=== PATIENT | male | born 1955 | race Caucasian/White ===

== ENCOUNTER 2016-05-13 04:58 | Emergency (ER) | payer OTHER ==
[~2016-05-13 04:58] MED LIST: ASPI1TAB24 PO; ATOR1TAB21 PO; AVAP75TA PO; METO25TAB PO; MULT1TAB10 PO; NITR4TASL SL; PLAV75TA38 PO; VITA500046 PO
[2016-05-13] MEDS ORDERED: ASPIRIN 81 MG CHEW TABLET As Ordered ONE (05:22)
[2016-05-13 05:34] LABS: MEAN CORPUSCULAR HEMOGLOBIN 31.5 pg (27.0-33.0); MEAN CORPUSCULAR HGB CONC 34.2 g/dl (32.0-36.5); MEAN CORPUSCULAR VOLUME 92.2 fl (80.0-96.0); RED CELL DISTRIBUTION WIDTH 12.2 % (11.5-14.5); WHITE BLOOD COUNT 7.8 K/mm3 (4.0-10.0)
[2016-05-13 05:36] LABS: INR 0.96
[2016-05-13 05:45] LABS: ANION GAP 8 MEQ/L (8-16); BLOOD UREA NITROGEN 22 MG/DL (7-18); CALCIUM LEVEL 8.6 MG/DL (8.8-10.2); CARBON DIOXIDE LEVEL 29 MEQ/L (21-32); CHLORIDE LEVEL 105 MEQ/L (98-107); CREATININE FOR GFR 0.98 MG/DL (0.70-1.30); GLOMERULAR FILTRATION RATE > 60.0 (>49); GLUCOSE, FASTING 110 MG/DL (80-110); POTASSIUM SERUM 3.6 MEQ/L (3.5-5.1); SODIUM LEVEL 142 MEQ/L (136-145)
[2016-05-13] MEDS ORDERED: SIMETHICONE 80 MG CHEW TAB PO ONE (05:45)
--- NOTE | 2016-05-13 06:23 | EDDOCDS ---
Nurse's Notes [facility] Name: Nick Stallings Age: 60 yrs Sex: Male : 1955 Arrival Date: 05/13/2016 Time: 04:58 Bed 17 Private MD: Diagnosis: Eructation Presentation: 05/13 05:02 Presenting complaint: Significant other states: states pt has been having episodes of cz anxiety for sometime. recently returned from [place].where anxiety issues continued pt retunred home less than 24hrs ago and chest discomfort anxiety have continued.currently pt has chest discomfort epigastric region feels like i want to burp. no radiation of pain. Aspirin was not taken prior to arrival. Adult Sepsis Screening: The patient does not have new or worsening altered mentation. Patient's respiratory rate is less than 22. Systolic blood pressure is greater than 100. Patient has a qSOFA score of 0- Negative Sepsis Screen. Suicide/Homicide risk assessment- the patient denies having any suicidal and/or homicidal ideations and does not present with any other emotional, behavioral or mental health complaints. Status: Patient is not a service department manager or dependent. Transition of care: patient was not received from another setting of care. 05:02 Acuity: ALPHONSO Level 2 cz 05:02 Method Of Arrival: Walkin/Carried/Asstd cz Triage Assessment: 05:13 General: Appears distressed, Behavior is anxious. Pain: Location: xyphoid area. HIV cz screening NA for this visit Offered previously. 06:21 Cardiovascular: Chest pain is described as vague, radiates Does not radiate. episodes ko2 are intermittent began over the last week. Historical: - Allergies: No known drug Allergies; - Home Meds: 1. atorvastatin 20 mg oral tab once daily 2. Avapro 75 mg Oral tab once daily 3. aspirin 81 mg Oral tab once daily 4. Plavix 75 mg Oral tab 5. metoprolol tartrate 25 mg Oral tab 1 tab 2 times per day 6. multivitamin Oral cap daily 7. nitroglycerin 0.4 mg SL subl 8. Vitamin D Oral 5000 unit daily - PMHx: NC; - PSHx: CABG; Coronary Stents; - Social history: Smoking status: Patient states was never smoker of tobacco. No barriers to communication noted, The patient speaks fluent Egyptian, Speaks appropriately for age. - Family history: Not pertinent. - : The pt / caregiver states he / she is on anticoagulants: Plavix. Home medication list is obtained from family members. - Exposure Risk Screening:: None identified. Screenin:06 Screening information is obtained from the patient. Fall risk: No risks identified. ko2 Assistance ADL's: requires no assistance with activities of daily living. Abuse/DV Screen: The patient / caregiver reports he/she is: not in a situation that causes fear, pain or injury. Nutritional screening: No deficits noted. Advance Directives: Currently, there is no health care proxy. There is no active DNR order. There is no living will. There is no Power of Intelligence Officer. home support is adequate. Assessment: 05:14 General: Appears distressed, Behavior is anxious, cooperative. Pain: Location: ko2 epigastric area. Neurological: Level of Consciousness is awake, alert. Cardiovascular: Heart tones S1 S2 present Rhythm is regular Chest pain is described as "not really a pain. It feels like I want to burp.". Respiratory: Airway is patent Respiratory effort is even, unlabored, Breath sounds are clear bilaterally. GI: Abdomen is non- distended Bowel sounds present X 4 quads. Derm: Skin is normal. Musculoskeletal: Range of motion intact in all extremities. 06:05 General: Appears in no apparent distress, Behavior is cooperative. Pain: Location: ko2 epigastric area. Neurological: Level of Consciousness is awake, alert. Cardiovascular: Rhythm is regular. Respiratory: Airway is patent Respiratory effort is even, unlabored. Derm: Skin is normal. Vital Signs: 05:13 BP 152 / 81; Pulse 68; Resp 16; Pulse Ox 98% on R/A; cz 05:19 Temp 98.7(TE); Weight 102.06 kg; Height 6 ft. 2 in. (187.96 cm); ko2 05:34 Pulse 66 MON; Pulse Ox 98% ; ko2 05:35 BP 146 / 74 (auto/); ko2 06:16 BP 138 / 75; Pulse 62; Resp 18; Temp 98.4(TE); Pulse Ox 97% on R/A; Pain 6/10; mally 05:19 Body Mass Index 28.89 (102.06 kg, 187.96 cm) ko2 Vitals: 05:13 Log In Time: May 13, 2016 at 05:10. cz ED Course: 04:59 Patient visited by Lou Santiago, Reg. hs2 04:59 Patient moved to Waiting hs2 05:00 Radha Galeano RN is Primary Nurse. cz 05:00 Patient moved to 17 cz 05:06 Patient visited by Susanna Smart PCA. mally 05:06 Pt greeted and oriented to ED. Patient advised of names of staff involved in care, mally location of call bennett, wait times and NPO status. Accompanied by Significant Other, Patient has correct armband on for positive identification. Placed in gown. Bed in low position. Call light in reach. Side rails up X 1. surveillance system monitor on. Pulse ox on. NIBP on. 05:06 EKG done. (by ED staff). Reviewed by Quirino Juan DO. mally 05:09 Triage Initiated cz 05:10 Quirino Juan DO is Attending Physician. cs11 05:10 Patient visited by Quirino Juan DO. cs11 05:13 Inserted saline lock: 20 gauge in left antecubital area and blood collected. The ko2 patient tolerated the procedure well. 05:22 Cardiac Marker Panel Sent. ko2 05:22 Pt & Aptt Sent. ko2 05:22 MED Profile Sent. ko2 05:22 CBC Sent. ko2 06:03 Patient visited by Radha Galeano RN. ko2 06:16 Patient visited by Susanna Smart PCA. mally 06:19 [facility] Payment Agreement was scanned into [employer] and attached to record. hs2 06:21 The patient / caregiver is instructed regarding the plan of care and ED course. ko2 06:21 Discontinued lock intact, bleeding controlled, pressure dressing applied, No ko2 redness/swelling at site. No procedures done that require assistance. Administered Medications: 05:28 Drug: Aspirin 324 mg [aspirin 81 mg chewable tablet (4 tabs)] Route: PO; ko2 05:46 Drug: Simethicone 360 mg Route: PO; ko2 Order Results: Lab Order: CBC; SPEC'M 05/13/16 05:11 Test: WHITE BLOOD COUNT; Value: 7.8; Range: 4.0-10.0; Units: K/mm3; Status: F Test: RED BLOOD COUNT; Value: 5.03; Range: 4.30-6.10; Units: M/mm3; Status: F Test: HEMOGLOBIN; Value: 15.9; Range: 14.0-18.0; Units: g/dl; Status: F Test: HEMATOCRIT; Value: 46.4; Range: 42.0-52.0; Units: %; Status: F Test: MEAN CORPUSCULAR VOLUME; Value: 92.2; Range: 80.0-96.0; Units: fl; Status: F Test: MEAN CORPUSCULAR HEMOGLOBIN; Value: 31.5; Range: 27.0-33.0; Units: pg; Status: F Test: MEAN CORPUSCULAR HGB CONC; Value: 34.2; Range: 32.0-36.5; Units: g/dl; Status: F Test: RED CELL DISTRIBUTION WIDTH; Value: 12.2; Range: 11.5-14.5; Units: %; Status: F Test: PLATELET COUNT, AUTOMATED; Value: 216; Range: 150-450; Units: k/mm3; Status: F Lab Order: MED Profile; [facility] 05/13/16 05:11 Test: GLUCOSE, FASTING; Value: 110; Range: 80-110; Units: MG/DL; Status: F Test: BLOOD UREA NITROGEN; Value: 22; Range: 7-18; Abnormal: Above high normal; Units: MG/DL; Status: F Test: CREATININE FOR GFR; Value: 0.98; Range: 0.70-1.30; Units: MG/DL; Status: F Test: GLOMERULAR FILTRATION RATE; Value: > 60.0; Range: >49; Status: F Test: SODIUM LEVEL; Value: 142; Range: 136-145; Units: MEQ/L; Status: F Test: POTASSIUM SERUM; Value: 3.6; Range: 3.5-5.1; Units: MEQ/L; Status: F Test: CHLORIDE LEVEL; Value: 105; Range: 98-107; Units: MEQ/L; Status: F Test: CARBON DIOXIDE LEVEL; Value: 29; Range: 21-32; Units: MEQ/L; Status: F Test: ANION GAP; Value: 8; Range: 8-16; Units: MEQ/L; Status: F Test: CALCIUM LEVEL; Value: 8.6; Range: 8.8-10.2; Abnormal: Below low normal; Units: MG/DL; Status: F Test Note: ; Units are mL/min/1.73 m2 Chronic Kidney Disease Staging per NKF: Stage I & II GFR >=60 Normal to Mildly Decreased Stage III GFR 30-59 Moderately Decreased Stage IV GFR 15-29 Severely Decreased Stage V GFR <15 Very Little GFR Left ESRD GFR <15 on BASKETBALL REFEREE Lab Order: Pt & Aptt; SPEC'M 05/13/16 05:11 Test: PROTHROMBIN TIME; Value: 12.9; Range: 12.3-14.5; Units: SECONDS; Status: F Test: INR; Value: 0.96; Status: F Test: PARTIAL THROMBOPLASTIN TIME; Value: 26.5; Range: 26.6-37.1; Abnormal: Below low normal; Units: SECONDS; Status: F Test Note: ; THERAPUTIC HUMAN INR VALUES INDICATIONS NORMAL RANGES PROPHYLAXIS/TREATMENT OF: VENOUS THROMBOSIS 2.0-3.0 PULMONARY EMBOLISM 2.0-3.0 PREVENTION OF SYSTEMIC EMBOLISM FROM: TISSUE HEART VALVES 2.0-3.0 ACUTE MYOCARDIAL INFARCTION 2.0-3.0 VALVULAR HEART DISEASE 2.0-3.0 ATRIAL FIBRILLATION 2.0-3.0 MECHANICAL VALVES(HIGH RISK) 2.5-3.5 RECURRENT MYOCARDIAL INFARCTION 2.5-3.5 Lab Order: Cardiac Marker Panel; SPEC'M 05/13/16 05:11 Test: CPK CREATINE PHOSPHOKINASE; Value: 279; Range: 39-308; Units: U/L; Status: F Test: CK-MB VALUE MASS; Value: 3.7; Range: 0.0-3.6; Abnormal: Above high normal; Units: NG/ML; Status: F Test: MB/CK RELATIVE INDEX; Value: 1.32; Range: < OR =4; Status: F Test: TROPONIN I; Value: < 0.02; Range: < 0.10; Units: NG/ML; Status: F Test Note: ; DIAGNOSIS CRITERIA MMB ng/ml Relative Index (RI) NON-AMI < or = 5 N/A GRANADOS ZONE > 5 < or = 4 AMI > 5 > 4 Outcome: 06:14 Discharge ordered by Provider. [facility] 06:21 Discharge Assessment: Patient awake, alert and oriented x 3. No cognitive and/or ko2 functional deficits noted. Patient verbalized understanding of disposition instructions. patient administered narcotics - no. The following High Risk Discharge criteria are identified: None. Discharged to home ambulatory, with significant other. Condition: stable. Discharge instructions given to patient, Instructed on discharge instructions, follow up and referral plans. Demonstrated understanding of instructions, Pt was receptive of discharge instructions/ teaching. No special radiology studies were completed. Property sent home with patient. 06:22 Patient left the ED. ko2 Signatures: Jaiden Giron, RN RN Susanna Rivero, CONNIE LOADING DOCK HAND Quirino Solares, DO cs11 Rdaha Galeano RN RN ko2 Lou Santiago, Reg Reg hs2 MTDD
--- NOTE | 2016-05-13 06:23 | EDDOCDS ---
Physician Documentation [facility] Name: Nick Stallings Age: 60 yrs Sex: Male : 1955 Arrival Date: 05/13/2016 Time: 04:58 Bed 17 Private MD: Disposition: 05/13/16 06:14 Discharged to Home/Self Care. Impression: Eructation. - Condition is Stable. - Medication Reconciliation, Local Pharmacy Hours form. - Follow up: Private Physician; When: Call to arrange an appointment; Reason: Recheck today's complaints. - Problem is new. - Symptoms have improved. - Notes: GasX OTC if needed. Historical: - Allergies: No known drug Allergies; - Home Meds: 1. atorvastatin 20 mg oral tab once daily 2. Avapro 75 mg Oral tab once daily 3. aspirin 81 mg Oral tab once daily 4. Plavix 75 mg Oral tab 5. metoprolol tartrate 25 mg Oral tab 1 tab 2 times per day 6. multivitamin Oral cap daily 7. nitroglycerin 0.4 mg SL subl 8. Vitamin D Oral 5000 unit daily - PMHx: [place]; - PSHx: CABG; Coronary Stents; - Social history: Smoking status: Patient states was never smoker of tobacco. No barriers to communication noted, The patient speaks fluent Haitian, Speaks appropriately for age. - Family history: Not pertinent. - : The pt / caregiver states he / she is on anticoagulants: Plavix. Home medication list is obtained from family members. - Exposure Risk Screening:: None identified. Vital Signs: 05/13 05:13 BP 152 / 81; Pulse 68; Resp 16; Pulse Ox 98% on R/A; cz 05:19 Temp 98.7(TE); Weight 102.06 kg / 225 lbs; Height 6 ft. 2 in. (187.96 cm); ko2 05:34 Pulse 66 MON; Pulse Ox 98% ; ko2 05:35 BP 146 / 74 (auto/); ko2 06:16 BP 138 / 75; Pulse 62; Resp 18; Temp 98.4(TE); Pulse Ox 97% on R/A; Pain 6/10; mally 05:19 Body Mass Index 28.89 (102.06 kg, 187.96 cm) ko2 MDM: 05:02 ECG WITH READING ER PHYS+CARDIAG ordered. EDMS 05:20 Aspirin 324 mg PO once ordered. cs11 05:20 Simethicone 360 mg PO once ordered. cs11 05:21 CBC Ordered. EDMS 05:21 MED Profile Ordered. EDMS 05:21 Pt & Aptt Ordered. EDMS 05:21 Cardiac Marker Panel Ordered. EDMS 06:01 MED Profile Reviewed. cs11 06:01 Pt & Aptt Reviewed. cs11 06:01 Cardiac Marker Panel Reviewed. cs11 06:01 CBC Reviewed. cs11 06:18 Financial registration complete. hs2 06:19 [facility] Payment Agreement was scanned into [employer] and attached to record. hs2 Administered Medications: 05:28 Drug: Aspirin 324 mg [aspirin 81 mg chewable tablet (4 tabs)] Route: PO; ko2 05:46 Drug: Simethicone 360 mg Route: PO; ko2 Signatures: Dispatcher [employer] EDMS Jaiden Giron RN RN cz Quirino Juan, DO cs11 Radha Galeano RN RN ko2 Lou Santiago, Reg Reg hs2 The chart was reviewed and I authenticate all verbal orders and agree with the evaluation and treatment provided.Attachments: 06:19 [facility] Payment Agreement hs2 MTDD
--- NOTE | 2016-05-14 10:11 | ECGEPIP ---
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
--- NOTE | 2016-05-15 07:23 | EDDOCDS ---
Nurse's Notes [facility] Name: Nick Torres Age: 60 yrs Sex: Male : 1955 Arrival Date: 05/13/2016 Time: 04:58 Bed 17 Private MD: Diagnosis: Eructation Presentation: 05/13 05:02 Presenting complaint: Significant other states: states pt has been having episodes of cz anxiety for sometime. recently returned from [place].where anxiety issues continued pt retunred home less than 24hrs ago and chest discomfort anxiety have continued.currently pt has chest discomfort epigastric region feels like i want to burp. no radiation of pain. Aspirin was not taken prior to arrival. Adult Sepsis Screening: The patient does not have new or worsening altered mentation. Patient's respiratory rate is less than 22. Systolic blood pressure is greater than 100. Patient has a qSOFA score of 0- Negative Sepsis Screen. Suicide/Homicide risk assessment- the patient denies having any suicidal and/or homicidal ideations and does not present with any other emotional, behavioral or mental health complaints. Status: Patient is not a guest service supervisor or dependent. Transition of care: patient was not received from another setting of care. 05:02 Acuity: ALPHONSO Level 2 cz 05:02 Method Of Arrival: Walkin/Carried/Asstd cz Triage Assessment: 05:13 General: Appears distressed, Behavior is anxious. Pain: Location: xyphoid area. HIV cz screening NA for this visit Offered previously. 06:21 Cardiovascular: Chest pain is described as vague, radiates Does not radiate. episodes ko2 are intermittent began over the last week. Historical: - Allergies: No known drug Allergies; - Home Meds: 1. atorvastatin 20 mg oral tab once daily 2. Avapro 75 mg Oral tab once daily 3. aspirin 81 mg Oral tab once daily 4. Plavix 75 mg Oral tab 5. metoprolol tartrate 25 mg Oral tab 1 tab 2 times per day 6. multivitamin Oral cap daily 7. nitroglycerin 0.4 mg SL subl 8. Vitamin D Oral 5000 unit daily - PMHx: PR; - PSHx: CABG; Coronary Stents; - Social history: Smoking status: Patient states was never smoker of tobacco. No barriers to communication noted, The patient speaks fluent Nigerien, Speaks appropriately for age. - Family history: Not pertinent. - : The pt / caregiver states he / she is on anticoagulants: Plavix. Home medication list is obtained from family members. - Exposure Risk Screening:: None identified. Screenin:06 Screening information is obtained from the patient. Fall risk: No risks identified. ko2 Assistance ADL's: requires no assistance with activities of daily living. Abuse/DV Screen: The patient / caregiver reports he/she is: not in a situation that causes fear, pain or injury. Nutritional screening: No deficits noted. Advance Directives: Currently, there is no health care proxy. There is no active DNR order. There is no living will. There is no Power of Scalp Treatment Operator. home support is adequate. Assessment: 05:14 General: Appears distressed, Behavior is anxious, cooperative. Pain: Location: ko2 epigastric area. Neurological: Level of Consciousness is awake, alert. Cardiovascular: Heart tones S1 S2 present Rhythm is regular Chest pain is described as "not really a pain. It feels like I want to burp.". Respiratory: Airway is patent Respiratory effort is even, unlabored, Breath sounds are clear bilaterally. GI: Abdomen is non- distended Bowel sounds present X 4 quads. Derm: Skin is normal. Musculoskeletal: Range of motion intact in all extremities. 06:05 General: Appears in no apparent distress, Behavior is cooperative. Pain: Location: ko2 epigastric area. Neurological: Level of Consciousness is awake, alert. Cardiovascular: Rhythm is regular. Respiratory: Airway is patent Respiratory effort is even, unlabored. Derm: Skin is normal. Vital Signs: 05:13 BP 152 / 81; Pulse 68; Resp 16; Pulse Ox 98% on R/A; cz 05:19 Temp 98.7(TE); Weight 102.06 kg; Height 6 ft. 2 in. (187.96 cm); ko2 05:34 Pulse 66 MON; Pulse Ox 98% ; ko2 05:35 BP 146 / 74 (auto/); ko2 06:16 BP 138 / 75; Pulse 62; Resp 18; Temp 98.4(TE); Pulse Ox 97% on R/A; Pain 6/10; mally 05:19 Body Mass Index 28.89 (102.06 kg, 187.96 cm) ko2 Vitals: 05:13 Log In Time: May 13, 2016 at 05:10. cz ED Course: 04:59 Patient visited by Lou Santiago, Reg. hs2 04:59 Patient moved to Waiting hs2 05:00 Radha Galeano RN is Primary Nurse. cz 05:00 Patient moved to 17 cz 05:06 Patient visited by Susanna Smart PCA. mally 05:06 Pt greeted and oriented to ED. Patient advised of names of staff involved in care, mally location of call bennett, wait times and NPO status. Accompanied by Significant Other, Patient has correct armband on for positive identification. Placed in gown. Bed in low position. Call light in reach. Side rails up X 1. director meetings on. Pulse ox on. NIBP on. 05:06 EKG done. (by ED staff). Reviewed by Quirino Cooper DO. mally 05:09 Triage Initiated cz 05:10 Quirino Cooper DO is Attending Physician. cs11 05:10 Patient visited by Quirino Cooper DO. cs11 05:13 Inserted saline lock: 20 gauge in left antecubital area and blood collected. The ko2 patient tolerated the procedure well. 05:22 Cardiac Marker Panel Sent. ko2 05:22 Pt & Aptt Sent. ko2 05:22 MED Profile Sent. ko2 05:22 CBC Sent. ko2 06:03 Patient visited by Radha Galeano RN. ko2 06:16 Patient visited by Susanna Smart PCA. mally 06:19 [facility] Payment Agreement was scanned into [facility] and attached to record. hs2 06:21 The patient / caregiver is instructed regarding the plan of care and ED course. ko2 06:21 Discontinued lock intact, bleeding controlled, pressure dressing applied, No ko2 redness/swelling at site. No procedures done that require assistance. 05/14 10:45 EKG-ADULT Returned. EDMS Administered Medications: 05/13 05:28 Drug: Aspirin 324 mg [aspirin 81 mg chewable tablet (4 tabs)] Route: PO; ko2 05:46 Drug: Simethicone 360 mg Route: PO; ko2 Order Results: Lab Order: CBC; SPEC'M 05/13/16 05:11 Test: WHITE BLOOD COUNT; Value: 7.8; Range: 4.0-10.0; Units: K/mm3; Status: F Test: RED BLOOD COUNT; Value: 5.03; Range: 4.30-6.10; Units: M/mm3; Status: F Test: HEMOGLOBIN; Value: 15.9; Range: 14.0-18.0; Units: g/dl; Status: F Test: HEMATOCRIT; Value: 46.4; Range: 42.0-52.0; Units: %; Status: F Test: MEAN CORPUSCULAR VOLUME; Value: 92.2; Range: 80.0-96.0; Units: fl; Status: F Test: MEAN CORPUSCULAR HEMOGLOBIN; Value: 31.5; Range: 27.0-33.0; Units: pg; Status: F Test: MEAN CORPUSCULAR HGB CONC; Value: 34.2; Range: 32.0-36.5; Units: g/dl; Status: F Test: RED CELL DISTRIBUTION WIDTH; Value: 12.2; Range: 11.5-14.5; Units: %; Status: F Test: PLATELET COUNT, AUTOMATED; Value: 216; Range: 150-450; Units: k/mm3; Status: F Lab Order: MED Profile; [facility] 05/13/16 05:11 Test: GLUCOSE, FASTING; Value: 110; Range: 80-110; Units: MG/DL; Status: F Test: BLOOD UREA NITROGEN; Value: 22; Range: 7-18; Abnormal: Above high normal; Units: MG/DL; Status: F Test: CREATININE FOR GFR; Value: 0.98; Range: 0.70-1.30; Units: MG/DL; Status: F Test: GLOMERULAR FILTRATION RATE; Value: > 60.0; Range: >49; Status: F Test: SODIUM LEVEL; Value: 142; Range: 136-145; Units: MEQ/L; Status: F Test: POTASSIUM SERUM; Value: 3.6; Range: 3.5-5.1; Units: MEQ/L; Status: F Test: CHLORIDE LEVEL; Value: 105; Range: 98-107; Units: MEQ/L; Status: F Test: CARBON DIOXIDE LEVEL; Value: 29; Range: 21-32; Units: MEQ/L; Status: F Test: ANION GAP; Value: 8; Range: 8-16; Units: MEQ/L; Status: F Test: CALCIUM LEVEL; Value: 8.6; Range: 8.8-10.2; Abnormal: Below low normal; Units: MG/DL; Status: F Test Note: ; Units are mL/min/1.73 m2 Chronic Kidney Disease Staging per NKF: Stage I & II GFR >=60 Normal to Mildly Decreased Stage III GFR 30-59 Moderately Decreased Stage IV GFR 15-29 Severely Decreased Stage V GFR <15 Very Little GFR Left ESRD GFR <15 on MANAGER DISH Lab Order: Pt & Aptt; [facility]05/13/16 05:11 Test: PROTHROMBIN TIME; Value: 12.9; Range: 12.3-14.5; Units: SECONDS; Status: F Test: INR; Value: 0.96; Status: F Test: PARTIAL THROMBOPLASTIN TIME; Value: 26.5; Range: 26.6-37.1; Abnormal: Below low normal; Units: SECONDS; Status: F Test Note: ; THERAPUTIC HUMAN INR VALUES INDICATIONS NORMAL RANGES PROPHYLAXIS/TREATMENT OF: VENOUS THROMBOSIS 2.0-3.0 PULMONARY EMBOLISM 2.0-3.0 PREVENTION OF SYSTEMIC EMBOLISM FROM: TISSUE HEART VALVES 2.0-3.0 ACUTE MYOCARDIAL INFARCTION 2.0-3.0 VALVULAR HEART DISEASE 2.0-3.0 ATRIAL FIBRILLATION 2.0-3.0 MECHANICAL VALVES(HIGH RISK) 2.5-3.5 RECURRENT MYOCARDIAL INFARCTION 2.5-3.5 Lab Order: Cardiac Marker Panel; [facility] 05/13/16 05:11 Test: CPK CREATINE PHOSPHOKINASE; Value: 279; Range: 39-308; Units: U/L; Status: F Test: CK-MB VALUE MASS; Value: 3.7; Range: 0.0-3.6; Abnormal: Above high normal; Units: NG/ML; Status: F Test: MB/CK RELATIVE INDEX; Value: 1.32; Range: < OR =4; Status: F Test: TROPONIN I; Value: < 0.02; Range: < 0.10; Units: NG/ML; Status: F Test Note: ; DIAGNOSIS CRITERIA MMB ng/ml Relative Index (RI) NON-AMI < or = 5 N/A GRANADOS ZONE > 5 < or = 4 AMI > 5 > 4 Radiology Order: EKG-ADULT Test: EKG-ADULT REASON FOR EXAMINATION: Chest Pain; Stationary ECG Study; [facility] ED; ; Test Date: 2016-05-13; Pat Name: NICK TORRES Department:; Room: -; Gender: M Contract 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 cs11 06:21 Discharge Assessment: Patient awake, alert and oriented x 3. No cognitive and/or ko2 functional deficits noted. Patient verbalized understanding of disposition instructions. patient administered narcotics - no. The following High Risk Discharge criteria are identified: None. Discharged to home ambulatory, with significant other. Condition: stable. Discharge instructions given to patient, Instructed on discharge instructions, follow up and referral plans. Demonstrated understanding of instructions, Pt was receptive of discharge instructions/ teaching. No special radiology studies were completed. Property sent home with patient. 06:22 Patient left the ED. ko2 Signatures: Dispatcher [employer] EDMS Jaiden Giron, Susanna Smith RN, Quirino Briones, DO cs11 Radha Galeano RN RN ko2 Lou Santiago, Reg Reg hs2 Chart Complete MTDD
--- NOTE | 2016-05-15 07:23 | EDDOCDS ---
Physician Documentation [facility] Name: iNck Stallings Age: 60 yrs Sex: Male : 1955 Arrival Date: 05/13/2016 Time: 04:58 Bed 17 Private MD: Disposition: 05/13/16 06:14 Discharged to Home/Self Care. Impression: Eructation. - Condition is Stable. - Medication Reconciliation, Local Pharmacy Hours form. - Follow up: Private Physician; When: Call to arrange an appointment; Reason: Recheck today's complaints. - Problem is new. - Symptoms have improved. - Notes: GasX OTC if needed. Historical: - Allergies: No known drug Allergies; - Home Meds: 1. atorvastatin 20 mg oral tab once daily 2. Avapro 75 mg Oral tab once daily 3. aspirin 81 mg Oral tab once daily 4. Plavix 75 mg Oral tab 5. metoprolol tartrate 25 mg Oral tab 1 tab 2 times per day 6. multivitamin Oral cap daily 7. nitroglycerin 0.4 mg SL subl 8. Vitamin D Oral 5000 unit daily - PMHx: [place]; - PSHx: CABG; Coronary Stents; - Social history: Smoking status: Patient states was never smoker of tobacco. No barriers to communication noted, The patient speaks fluent [place], Speaks appropriately for age. - Family history: Not pertinent. - : The pt / caregiver states he / she is on anticoagulants: Plavix. Home medication list is obtained from family members. - Exposure Risk Screening:: None identified. Vital Signs: 05/13 05:13 BP 152 / 81; Pulse 68; Resp 16; Pulse Ox 98% on R/A; cz 05:19 Temp 98.7(TE); Weight 102.06 kg / 225 lbs; Height 6 ft. 2 in. (187.96 cm); ko2 05:34 Pulse 66 MON; Pulse Ox 98% ; ko2 05:35 BP 146 / 74 (auto/); ko2 06:16 BP 138 / 75; Pulse 62; Resp 18; Temp 98.4(TE); Pulse Ox 97% on R/A; Pain 6/10; mally 05:19 Body Mass Index 28.89 (102.06 kg, 187.96 cm) ko2 MDM: 05:02 ECG WITH READING ER PHYS+CARDIAG ordered. EDMS 05:20 Aspirin 324 mg PO once ordered. cs11 05:20 Simethicone 360 mg PO once ordered. cs11 05:21 CBC Ordered. EDMS 05:21 MED Profile Ordered. EDMS 05:21 Pt & Aptt Ordered. EDMS 05:21 Cardiac Marker Panel Ordered. EDMS 06:01 MED Profile Reviewed. cs11 06:01 Pt & Aptt Reviewed. cs11 06:01 Cardiac Marker Panel Reviewed. cs11 06:01 CBC Reviewed. cs11 06:18 Financial registration complete. hs2 06:19 [facility] Payment Agreement was scanned into [employer] and attached to record. hs2 Administered Medications: 05:28 Drug: Aspirin 324 mg [aspirin 81 mg chewable tablet (4 tabs)] Route: PO; ko2 05:46 Drug: Simethicone 360 mg Route: PO; ko2 Signatures: Dispatcher [employer] EDMS Jaiden Giron RN RN cz Quirino Juan, DO cs11 Radha Galeano RN RN ko2 Lou Santiago, Reg Reg hs2 The chart was reviewed and I authenticate all verbal orders and agree with the evaluation and treatment provided.Attachments: 06:19 [facility] Payment Agreement hs2 Chart Complete MTDD
--- NOTE | 2016-05-15 07:23 | EDDOCDS ---
Physician Documentation [facility] Name: Nick Stallings Age: 60 yrs Sex: Male : 1955 Arrival Date: 05/13/2016 Time: 04:58 Bed 17 Private MD: Disposition: 05/13/16 06:14 Discharged to Home/Self Care. Impression: Eructation. - Condition is Stable. - Medication Reconciliation, Local Pharmacy Hours form. - Follow up: Private Physician; When: Call to arrange an appointment; Reason: Recheck today's complaints. - Problem is new. - Symptoms have improved. - Notes: GasX OTC if needed. Historical: - Allergies: No known drug Allergies; - Home Meds: 1. atorvastatin 20 mg oral tab once daily 2. Avapro 75 mg Oral tab once daily 3. aspirin 81 mg Oral tab once daily 4. Plavix 75 mg Oral tab 5. metoprolol tartrate 25 mg Oral tab 1 tab 2 times per day 6. multivitamin Oral cap daily 7. nitroglycerin 0.4 mg SL subl 8. Vitamin D Oral 5000 unit daily - PMHx: [place]; - PSHx: CABG; Coronary Stents; - Social history: Smoking status: Patient states was never smoker of tobacco. No barriers to communication noted, The patient speaks fluent [place], Speaks appropriately for age. - Family history: Not pertinent. - : The pt / caregiver states he / she is on anticoagulants: Plavix. Home medication list is obtained from family members. - Exposure Risk Screening:: None identified. Vital Signs: 05/13 05:13 BP 152 / 81; Pulse 68; Resp 16; Pulse Ox 98% on R/A; cz 05:19 Temp 98.7(TE); Weight 102.06 kg / 225 lbs; Height 6 ft. 2 in. (187.96 cm); ko2 05:34 Pulse 66 MON; Pulse Ox 98% ; ko2 05:35 BP 146 / 74 (auto/); ko2 06:16 BP 138 / 75; Pulse 62; Resp 18; Temp 98.4(TE); Pulse Ox 97% on R/A; Pain 6/10; mally 05:19 Body Mass Index 28.89 (102.06 kg, 187.96 cm) ko2 MDM: 05:02 ECG WITH READING ER PHYS+CARDIAG ordered. EDMS 05:20 Aspirin 324 mg PO once ordered. cs11 05:20 Simethicone 360 mg PO once ordered. cs11 05:21 CBC Ordered. EDMS 05:21 MED Profile Ordered. EDMS 05:21 Pt & Aptt Ordered. EDMS 05:21 Cardiac Marker Panel Ordered. EDMS 06:01 MED Profile Reviewed. cs11 06:01 Pt & Aptt Reviewed. cs11 06:01 Cardiac Marker Panel Reviewed. cs11 06:01 CBC Reviewed. cs11 06:18 Financial registration complete. hs2 06:19 [facility] Payment Agreement was scanned into [email or web address] and attached to record. hs2 Administered Medications: 05:28 Drug: Aspirin 324 mg [aspirin 81 mg chewable tablet (4 tabs)] Route: PO; ko2 05:46 Drug: Simethicone 360 mg Route: PO; ko2 Signatures: Dispatcher [employer] EDMS Jaiden Giron RN RN cz Quirino Juan, DO cs11 Radha Galeano RN RN ko2 Lou Santiago, Reg Reg hs2 The chart was reviewed and I authenticate all verbal orders and agree with the evaluation and treatment provided.Attachments: 06:19 [facility] Payment Agreement hs2 Chart Complete MTDD
== END 2016-05-13 06:22 | disposition home or self-care (01) ==
LOC: M ED 04:58
DX: R14.2 Eructation (principal); I25.10 Atherosclerotic heart disease of native coronary artery without angina pectoris; Z95.1 Presence of aortocoronary bypass graft; Z79.82 Long term (current) use of aspirin; Z79.02 Long term (current) use of antithrombotics/antiplatelets; Z79.899 Other long term (current) drug therapy; I25.2 Old myocardial infarction

== ENCOUNTER 2016-05-17 02:35 | Emergency (ER) | payer OTHER ==
[~2016-05-17] VITALS: Ht 188 cm; Wt 102.1 kg
[2016-05-17] MEDS ORDERED: LORazepam 2 MG/ML VIAL (J2060) IV STA (03:39)
[2016-05-17] MEDS ORDERED: ASPIRIN 325 MG TAB PO ONE (03:45)
[2016-05-17 03:47] LABS: MEAN CORPUSCULAR HEMOGLOBIN 31.7 pg (27.0-33.0); MEAN CORPUSCULAR HGB CONC 34.9 g/dl (32.0-36.5); MEAN CORPUSCULAR VOLUME 90.9 fl (80.0-96.0); RED CELL DISTRIBUTION WIDTH 12.2 % (11.5-14.5); WHITE BLOOD COUNT 9.3 K/mm3 (4.0-10.0)
[2016-05-17 03:48] LABS: INR 1.01
[2016-05-17 03:56] LABS: AMYLASE 61 U/L (25-115); ANION GAP 9 MEQ/L (8-16); BLOOD UREA NITROGEN 17 MG/DL (7-18); CALCIUM LEVEL 9.3 MG/DL (8.8-10.2); CARBON DIOXIDE LEVEL 28 MEQ/L (21-32); CHLORIDE LEVEL 102 MEQ/L (98-107); CREATININE FOR GFR 0.95 MG/DL (0.70-1.30); GLOMERULAR FILTRATION RATE > 60.0 (>49); GLUCOSE, FASTING 108 MG/DL (80-110); POTASSIUM SERUM 3.5 MEQ/L (3.5-5.1); SODIUM LEVEL 139 MEQ/L (136-145)
[2016-05-17] MEDS ORDERED: ISOVUE-370 76% 100ML VIAL (Q9967) As Ordered ONE (04:17)
--- NOTE | 2016-05-17 05:00 | REPUSA ---
CLINICAL HISTORY: Pain, exclude PE. TECHNIQUE: Multiple incremental axial, coronal and oblique images are obtained from the thoracic inle t to the upper abdomen. Intravenous contrast material was administered as per pulmonary embolism prot ocol. COMMENTS: There is excellent opacification of pulmonary arterial system without evidence for pulmonary embolism . Aorta is of normal caliber without evidence for dissection or aneurysm. There is no evidence of pleural or parenchymal mass. Bilateral basilar atelectatic pulmonary changes. There are no pleural effusions. There is no evidence of hilar or mediastinal lymphadenopathy. The he art and great vessels are within normal limits. Images of the upper abdomen demonstrate no evidence of adrenal mass. The bony structures are free of lytic or blastic lesions. Multilevel degenerative changes are seen in volving the visualized thoracolumbar spine. Scattered calcifications are seen involving the aorta and major branches compatible with atherosclero sis. IMPRESSION: No evidence for pulmonary embolism. Basilar atelectatic pulmonary changes. Thank you for your kind referral of this patient.
--- NOTE | 2016-05-17 05:10 | REPUSA ---
CLINICAL HISTORY: Abdominal pain. TECHNIQUE: Multiple axial, sagittal and coronal CT images were obtained through the abdomen and pelvi s after administration of intravenous contrast material. COMMENTS: The liver is of uniform attenuation without mass or defect. There is no intra or extrahepatic biliary ductal dilatation. The spleen is normal. The gallbladder is within normal limits. The pancreas is of normal contour and attenuation characteristics. There is no evidence of adrenal mass. Bilateral peripelvic renal cysts. Both kidneys demonstrate prompt and equal nephrograms. The kidneys are normal in size, shape and conf iguration. There is no evidence of renal or ureteral mass. No renal or ureteral calculi are identifie d. There is no hydroureter or hydronephrosis. No evidence for appendicitis. There is no bowel wall thickening. No evidence for small or large luisito l obstruction. There is no evidence of abdominal ascites or lymphadenopathy. There is no evidence of intrinsic or extrinsic bladder mass. There is no pelvic ascites or lymphadeno nigel. Uncomplicated clonic diverticulosis. Mild fecal stasis. Small sliding hiatal hernia. Mild pros tatomegaly. Images of the lung bases show no evidence of pleural or parenchymal mass. There are no pleural effusi ons. The bony structures are free of lytic or blastic lesions. Multilevel degenerative changes are seen in volving the thoracolumbar spine. Scattered calcifications are seen involving the aorta and major bran ches compatible with atherosclerosis. IMPRESSION: Uncomplicated clonic diverticulosis. Bilateral peripelvic renal cysts. Prostatomegaly. No evidence of acute abdominal or pelvic pathology. Thank you for your kind referral of this patient.
[2016-05-17 07:26] VITALS: BP 150/91
[2016-05-17] MEDS ORDERED: ATIV1TAB10 PO (07:30)
--- NOTE | 2016-05-18 20:03 | ECGEPIP ---
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
== END 2016-05-17 07:49 | disposition home or self-care (01) ==
LOC: M ED 03:54
DX: F41.1 Generalized anxiety disorder (principal); I25.10 Atherosclerotic heart disease of native coronary artery without angina pectoris; I10 Essential (primary) hypertension; Z95.1 Presence of aortocoronary bypass graft; Z79.82 Long term (current) use of aspirin; Z79.899 Other long term (current) drug therapy; Z79.02 Long term (current) use of antithrombotics/antiplatelets
CPT/HCPCS: 36415; 71275; 74160; 80048; 82150; 82550; 82553; 83690; 85027; 85610; 85730; 93005; 96374; 99284; J2060; Q9967

== ENCOUNTER → 2016-05-28 | Outpatient (REF) | payer OTHER ==
[~2016-05-28] MED LIST changes: +ATIV1TAB10 PO
[2016-05-28 13:32] LABS: ALBUMIN 3.8 GM/DL (3.2-5.2); ALBUMIN/GLOBULIN RATIO 1.19 (1.00-1.93); BILIRUBIN,DIRECT 0.3 MG/DL (0.0-0.2); BILIRUBIN,TOTAL 1.2 MG/DL (0.2-1.0)
== END ==
LOC: M LABDRWAD 13:03
PROVIDERS: ATTEND Family Medicine
DX: N40.0 Benign prostatic hyperplasia without lower urinary tract symptoms (principal); R53.81 Other malaise

== ENCOUNTER → 2016-09-10 | Outpatient (REF) | payer OTHER ==
[~2016-09-10] MED LIST changes: +ASPI-161 PO; -ASPI1TAB24 PO; -AVAP75TA PO; +AVAP75TA7 PO; +METO25TA4 PO; -METO25TAB PO; +PLAV1TAB2 PO; -PLAV75TA38 PO
== END ==
LOC: M LABDRWAD 12:10
PROVIDERS: ATTEND Nurse Practitioner Adult Health
DX: E78.2 Mixed hyperlipidemia (principal); I25.10 Atherosclerotic heart disease of native coronary artery without angina pectoris

== ENCOUNTER → 2017-07-09 | Outpatient (REF) | payer OTHER ==
[2017-07-09 12:35] LABS: BASO # 0.1 10^3/uL (0.0-0.2); BASO % 0.8 % (0.0-1.0); EOS # 0.4 10^3/uL (0.0-0.50); EOS % 4.6 % (0.0-3.0); HEMATOCRIT 48.3 % (42.0-52.0); HEMOGLOBIN 16.2 g/dl (13.5-17.5); IMMATURE GRANULOCYTE % 1.1 % (0-3.0); LYMPH # 1.8 10^3/uL (1.5-4.5); LYMPH % 23.7 % (24.0-44.0); MEAN CORPUSCULAR HEMOGLOBIN 30.7 pg (27.0-33.0); MEAN CORPUSCULAR HGB CONC 33.5 g/dl (32.0-36.5); MEAN CORPUSCULAR VOLUME 91.5 fl (80.0-96.0); MONO # 0.7 10^3/uL (0.0-0.8); MONO % 9.8 % (0.0-5.0); NEUTROPHILS # 4.5 10^3/uL (1.8-7.7); PLATELET COUNT, AUTOMATED 238 10^3/uL (150-450); RED BLOOD COUNT 5.28 10^6/uL (4.30-6.10); RED CELL DISTRIBUTION WIDTH 12.5 % (11.5-14.5); WHITE BLOOD COUNT 7.6 10^3/uL (4.0-10.0)
[2017-07-09 13:31] LABS: ALBUMIN 3.8 GM/DL (3.2-5.2); ALKALINE PHOSPHATASE 107 U/L (45-117); ALT/SGPT 73 U/L (12-78); ANION GAP 7 MEQ/L (8-16); AST/SGOT 47 U/L (7-37); BILIRUBIN,TOTAL 1.4 MG/DL (0.2-1.0); BLOOD UREA NITROGEN 27 MG/DL (7-18); CALCIUM LEVEL 8.8 MG/DL (8.8-10.2); CARBON DIOXIDE LEVEL 28 MEQ/L (21-32); CHLORIDE LEVEL 106 MEQ/L (98-107); CHOLESTEROL LEVEL 138 MG/DL (<200); CHOLESTEROL RISK RATIO 2.603 (<5); CREATININE FOR GFR 0.93 MG/DL (0.70-1.30); GLOMERULAR FILTRATION RATE > 60.0 (>49); GLUCOSE, FASTING 91 MG/DL (70-100); HDL CHOLESTEROL 53 MG/DL (>40); NON-HDL-C 85 MG/DL; POTASSIUM SERUM 4.2 MEQ/L (3.5-5.1); PROSTATIC SPECIFIC AG MONITOR 2.66 NG/ML (< 4.0); SODIUM LEVEL 141 MEQ/L (136-145); TOTAL PROTEIN 7.6 GM/DL (6.4-8.2); TRIGLYCERIDES LEVEL 100 MG/DL (<150)
== END ==
LOC: M LABDRWAD 12:19
DX: N40.0 Benign prostatic hyperplasia without lower urinary tract symptoms (principal); I10 Essential (primary) hypertension

== ENCOUNTER → 2017-07-09 | Outpatient (REF) | payer OTHER ==
[2017-07-09 13:08] LABS: ALT/SGPT 74 U/L (12-78); AST/SGOT 49 U/L (7-37); CHOLESTEROL LEVEL 137 MG/DL (<200); CPK CREATINE PHOSPHOKINASE 618 U/L (39-308); HDL CHOLESTEROL 55 MG/DL (>40); LDL CHOLESTEROL 60.8 MG/DL (<100); NON-HDL-C 82 MG/DL; TRIGLYCERIDES LEVEL 106 MG/DL (<150)
== END ==
LOC: M LABDRWAD 12:17
DX: E78.2 Mixed hyperlipidemia (principal)

== ENCOUNTER → 2017-07-31 | Outpatient (CLI) | payer OTHER ==
[2017-07-31 09:31] LABS: ALT/SGPT 71 U/L (12-78)
[2017-07-31 09:31] LABS: AST/SGOT 47 U/L (7-37)
[2017-07-31 09:33] LABS: ALBUMIN 3.8 GM/DL (3.2-5.2); ALBUMIN/GLOBULIN RATIO 1.06 (1.00-1.93); ALKALINE PHOSPHATASE 102 U/L (45-117); ALT/SGPT 72 U/L (12-78); AST/SGOT 46 U/L (7-37); BILIRUBIN,DIRECT 0.3 MG/DL (0.0-0.2); BILIRUBIN,TOTAL 1.3 MG/DL (0.2-1.0); CHOLESTEROL LEVEL 146 MG/DL (<200); CHOLESTEROL RISK RATIO 2.393 (<5); CPK CREATINE PHOSPHOKINASE 724 U/L (39-308); HDL CHOLESTEROL 61 MG/DL (>40); LDL CHOLESTEROL 69.6 MG/DL (<100); NON-HDL-C 85 MG/DL; TOTAL PROTEIN 7.4 GM/DL (6.4-8.2); TRIGLYCERIDES LEVEL 77 MG/DL (<150)
== END ==
LOC: M WUC 08:04
DX: E78.2 Mixed hyperlipidemia (principal)
CPT/HCPCS: 84460

== ENCOUNTER → 2018-02-17 | Outpatient (REF) | payer OTHER ==
[2018-02-17 13:44] LABS: BASO # 0.1 10^3/uL (0.0-0.2); BASO % 0.7 % (0.0-1.0); EOS # 0.2 10^3/uL (0.0-0.50); EOS % 2.3 % (0.0-3.0); HEMATOCRIT 48.3 % (42.0-52.0); IMMATURE GRANULOCYTE % 0.8 % (0-3.0); LYMPH # 1.7 10^3/uL (1.5-4.5); MEAN CORPUSCULAR HEMOGLOBIN 30.8 pg (27.0-33.0); MEAN CORPUSCULAR HGB CONC 33.1 g/dl (32.0-36.5); MEAN CORPUSCULAR VOLUME 92.9 fl (80.0-96.0); MONO # 0.8 10^3/uL (0.0-0.8); NEUTROPHILS # 4.8 10^3/uL (1.8-7.7); NEUTROPHILS % 63.2 % (36.0-66.0); PLATELET COUNT, AUTOMATED 232 10^3/uL (150-450); RED CELL DISTRIBUTION WIDTH 12.5 % (11.5-14.5); WHITE BLOOD COUNT 7.5 10^3/uL (4.0-10.0)
[2018-02-17 13:51] LABS: ALBUMIN 3.9 GM/DL (3.2-5.2); ALBUMIN/GLOBULIN RATIO 1.22 (1.00-1.93); ALKALINE PHOSPHATASE 88 U/L (45-117); ALT/SGPT 53 U/L (12-78); ANION GAP 6 MEQ/L (8-16); AST/SGOT 33 U/L (7-37); BILIRUBIN,TOTAL 1.2 MG/DL (0.2-1.0); BLOOD UREA NITROGEN 27 MG/DL (7-18); CALCIUM LEVEL 9.2 MG/DL (8.8-10.2); CARBON DIOXIDE LEVEL 30 MEQ/L (21-32); CHLORIDE LEVEL 107 MEQ/L (98-107); CREATININE FOR GFR 0.96 MG/DL (0.70-1.30); GLOMERULAR FILTRATION RATE > 60.0 (>49); GLUCOSE, FASTING 99 MG/DL (70-100); POTASSIUM SERUM 4.5 MEQ/L (3.5-5.1); SODIUM LEVEL 143 MEQ/L (136-145); TOTAL PROTEIN 7.1 GM/DL (6.4-8.2)
== END ==
LOC: M LAB REF 13:16
DX: I10 Essential (primary) hypertension (principal)
CPT/HCPCS: 80053